=== PATIENT | female | born 1960 | race Caucasian/White ===

== ENCOUNTER → 2017-07-11 12:00 | Outpatient (CLI) | payer OTHER ==
[2012-05-20 13:36] VITALS: BMI 28.2
== END | disposition home or self-care (01) ==
LOC: D.MAMMO 08:00
DX: Z12.31 Encounter for screening mammogram for malignant neoplasm of breast (principal)

== ENCOUNTER → 2018-07-27 07:39 | Outpatient (CLI) | payer OTHER ==
[2012-05-20 13:36] VITALS: BMI 28.2
== END | disposition home or self-care (01) ==
LOC: D.MRI 07:39
DX: M25.572 Pain in left ankle and joints of left foot (principal)

== ENCOUNTER 2018-09-29 16:02 | Observation (INO) | payer OTHER ==
[~2018-09-29] VITALS: Ht 170.2 cm; Wt 86.4 kg
[2018-09-29] MEDS ORDERED: ZANTAC300 MG PO (16:14)
[2018-09-29] MEDS ORDERED: PROPAFENONE HC150 MG PO (16:14)
[2018-09-29] MEDS ORDERED: BAYER CHEWABLE81 MG PO (16:14)
[2018-09-29] MEDS ORDERED: ZIAC 5-6.25 MG1 TAB PO (16:14)
[2018-09-29 16:41] LABS: BASOPHILS 0.3 % (0-2); EOSINOPHILS 2.4 % (0-7); HEMATOCRIT 42.6 % (36.0-48.0); HEMOGLOBIN 14.6 g/dL (12-16); IMMATURE GRANULOCYTES 0.2 % (0-5); LYMPHOCYTES 50.3 % (15-50); MCH 31.7 pg (26.0-34.0); MCHC 34.3 g/dL (31.0-37.0); MCV 92.4 fL (80.0-100.0); MEAN PLATELET VOLUME 10.9 fL (7.4-10.4); MONOCYTES 8.6 % (2-11); NEUTROPHILS 38.2 % (40-80); PLATELET COUNT 238 10x3/uL (130-400); RBC 4.61 10x6/uL (4.00-5.40); WBC 5.9 10x3/uL (4.8-10.8)
[2018-09-29 16:55] LABS: APTT 25.4 SECONDS (22.8-39.4); INR 0.9 (0.85-1.17); PROTIME 11.7 SECONDS (11.6-15.0)
[2018-09-29 17:02] LABS: ALBUMIN 3.8 g/dL (3.4-5.0); ALKALINE PHOSPHATASE 86 U/L (46-116); ALT (SGPT) 37 U/L (10-68); BILIRUBIN - TOTAL 0.24 mg/dL (0.2-1.3); CALC OSMOLALITY 286 mosm/kg (275-300); CALCIUM 9.1 mg/dL (8.5-10.1); CARBON DIOXIDE 29.3 mmol/L (21.0-32.0); CHLORIDE - SERUM 104 mmol/L (98-107); CREATININE - SERUM 0.9 mg/dL (0.6-1.3); POTASSIUM - SERUM 3.7 mmol/L (3.5-5.1); PROTEIN - SERUM 7.5 g/dL (6.4-8.2); SODIUM 142 mmol/L (136-145); UREA NITROGEN 14 mg/dL (7-18); eGFR NON AFRICAN AMERICAN 68 mL/min (90-120)
[2018-09-29 17:04] LABS: GLUCOSE 144 mg/dL (74-106)
[2018-09-29 17:13] LABS: CKMB 0.3 U/L (0.0-3.6); CREATINE KINASE 72 UL (21-215); MAGNESIUM - SERUM 2.1 mg/dL (1.8-2.4); TROPONIN-I < 0.017 ng/mL (0.000-0.060)
--- NOTE | 2018-09-29 17:24 | NUR ---
NO RELIEF FROM NTG
[2018-09-29 17:31] LABS: CKMB 0.7 U/L (0.0-3.6); CREATINE KINASE 68 UL (21-215); TROPONIN-I < 0.017 ng/mL (0.000-0.060)
[2018-09-29 17:34] VITALS: BP 104/67
--- NOTE | 2018-09-29 21:06 | NUR ---
RECEIVED FROM ER @ 1593, AZAR-REBECCA-NICO, TELEMTRY IS ON, GAVE A SANDWICH AND DRINK, BED IS LOW, SRX2,CALL LIGHT IN REACH, WILL CONTINUE PLAN OF CARE
[2018-09-29 23:55] VITALS: BP 118/71
[2018-09-30 03:55] VITALS: BP 124/74
[2018-09-30 04:43] LABS: HEMATOCRIT 38.3 % (36.0-48.0); HEMOGLOBIN 12.9 g/dL (12-16); MCH 31.5 pg (26.0-34.0); MCHC 33.7 g/dL (31.0-37.0); MCV 93.4 fL (80.0-100.0); MEAN PLATELET VOLUME 11.4 fL (7.4-10.4); PLATELET COUNT 227 10x3/uL (130-400); RDW 13.1 % (11.5-14.5); WBC 6.4 10x3/uL (4.8-10.8)
--- NOTE | 2018-09-30 04:43 | NUR ---
ASSESSMENT PER MANAGER TALENT MANAGEMENT REVIEWED AND THIS RN IN AGREEMENT. MONITOR AND CPOC.
--- NOTE | 2018-09-30 04:45 | NUR ---
ADMISSION ASSESSMENT COMPLETED. PT RESTING IN BED WITH NO DISTRESS. PLAN OF CARE INITIATED.
[2018-09-30 05:11] LABS: ALBUMIN 3.1 g/dL (3.4-5.0); ALKALINE PHOSPHATASE 66 U/L (46-116); ALT (SGPT) 34 U/L (10-68); BILIRUBIN - TOTAL 0.57 mg/dL (0.2-1.3); CALCIUM 8.4 mg/dL (8.5-10.1); CARBON DIOXIDE 28.8 mmol/L (21.0-32.0); CHLORIDE - SERUM 105 mmol/L (98-107); CKMB 0.2 U/L (0.0-3.6); CREATINE KINASE 107 UL (21-215); CREATININE - SERUM 0.7 mg/dL (0.6-1.3); PROTEIN - SERUM 6.1 g/dL (6.4-8.2); SODIUM 143 mmol/L (136-145); TROPONIN-I < 0.017 ng/mL (0.000-0.060); UREA NITROGEN 14 mg/dL (7-18); eGFR NON AFRICAN AMERICAN > 90 mL/min (90-120)
[2018-09-30 05:24] LABS: CALC OSMOLALITY 285 mosm/kg (275-300); GLUCOSE 92 mg/dL (74-106); POTASSIUM - SERUM 5.1 mmol/L (3.5-5.1)
[2018-09-30 05:37] LABS: EOSINOPHILS 3 % (0-7); LYMPHOCYTES 64 % (15-50); MONOCYTES 11 % (2-11); NEUTROPHILS 22 % (40-80)
[2018-09-30 05:38] LABS: PLATELET ESTIMATE NORMAL
[2018-09-30 06:36] VITALS: BP 124/74; Ht 170.2 cm; Wt 86.4 kg
--- NOTE | 2018-09-30 07:10 | NUR ---
RECEIVED BEDSIDE SHIFT REPORT. ASSUMED CARE OF PATIENT. PATIENT WITH EYES CLOSED, EASILY AROUSED. DENIES NEEDS AT THIS TIME. EXPLAINED NPO STATUS TO PATIENT. PATIENT VERBALIZED HER UNDERSTANDING. DENIES NEEDS AT THIS TIME. NO DISTRESS.
--- NOTE | 2018-09-30 07:40 | NUR ---
PATIENT ALERT/ORIENTED, UP AD AURELIO.
[2018-09-30 08:50] VITALS: BP 123/78
[2018-09-30] MEDS ORDERED: ZIAC 5-6.25 MG1 TAB PO (09:42)
--- NOTE | 2018-09-30 10:04 | NUR ---
20 GAUGE IV REMOVED FROM LEFT AC PATIENT IS BEING DISCHARGED TO HOME. CATHETER TIP INTACT. NO BLEEDING FROM SITE. PATIENT REFUSED BANDAID DUE TO SENSITIVE SKIN. TOLERATED IV REMOVAL WELL.
--- NOTE | 2018-09-30 10:36 | NUR ---
1028 PATIENT LEFT UNIT VIA WHEELCHAIR WITH ALL PERSONAL BELONGINGS. PATIENT DISCHARGED TO HOME VIA PRIVATE CAR. PATIENT IN NO DISTRESS UPON LEAVING UNIT THIS AM.
--- NOTE | 2018-10-02 11:18 | DS ---
PATIENT:KANCHAN BENSON :60 MEDICAL RECORD: [id number] DISCHARGE SUMMARY ADMISSION DATE: 09/29/18 DISCHARGE DATE: 09/30/18 DATE OF SERVICE: 09/30/2018. DISCHARGE DIAGNOSES: 1. Dysrhythmia - premature ventricular contractions. 2. Chest pain. 3. Paroxysmal atrial fibrillation. 4. Hypertension. HISTORY OF PRESENT ILLNESS: Ms. Benson presents with episodes of chest pain in conjunction with PVCs. Elsewise, she does not have chest pain. She has a history of atrial fibrillation for which she is on propafenone, history of hypertension for which she is on bisoprolol. The bisoprolol was doubled, PVCs were abolished. She was discharged home with the addition of the bisoprolol b.i.d. to her medical regimen, continue the propafenone. Follow up with Dr. Murrell as previously scheduled. TRANSINT:[id number] Voice Confirmation ID: [id number] DOCUMENT ID: [id number] AKSHAT CRAWFORD MD at 1118 CC: [id number] DICTATION DATE: 09/30/18 1142 PROCESS CONSULTANT: 10/01/18 0043 DIS IN 09/30/18 [facility] [address] [place] [address]
--- NOTE | 2018-10-03 08:24 | MORECARE ---
CASE MANAGEMENT DISCHARGE SUMMARY PATIENT: KANCHAN MENJIVAR UNIT: [id number] ADM DATE: 09/29/18 AGE: 58 : 60 SEX: F ROOM/BED: D.[facility] AUTHOR: ABRAM KRUGER PHYSICIAN: REFERRING PHYSICIAN: AKSHAT CRAWFORD MD DATE OF SERVICE: 10/03/18 Discharge Plan Patient Name: KANCHAN MENJIVAR Facility: [facility]:[place] : 1960 Planned Disposition: Home Anticipated Discharge Date: 09/30/18 Discharge Date: 09/30/2018 Expected LOS: 1 Initial Reviewer: [email or web address] Initial Review Date: 10/03/2018 Generated: 10/03/18 9:24 am Patient Name: KANCHAN MENJIVAR Page [phone] at 0824 All edits/amendments must be made on the electronic document DICTATION DATE: 10/03/18822 ALTERNATIVE FINANCING SPECIALIST: AIYANA 10/03/18822 RPT#: [id number] DC DATE:09/30/18 STATUS: DIS IN [facility] [address] [place] [address] END OF REPORT
== END 2018-09-30 10:28 | disposition home or self-care (01) ==
LOC: D.OPS 16:02 → D.ER 16:02 → D.M2 17:04 → OBSVTIME 17:04 → D.M2 17:04 → D.ER 18:52 → EDSTATUS 20:33 → D.OPS 20:35 → D.M2 09-30 10:28
PROVIDERS: Family Medicine; ADMIT Internal Medicine Interventional Cardiology
DX: I48.0 Paroxysmal atrial fibrillation (principal); I49.3 Ventricular premature depolarization; I10 Essential (primary) hypertension

== ENCOUNTER → 2018-10-10 09:49 | Outpatient (CLI) | payer OTHER ==
[2018-09-30 06:36] VITALS: BMI 29.8
[~2018-10-10 09:49] MED LIST: BAYER CHEWABLE81 MG PO; PROPAFENONE HC150 MG PO; ZANTAC300 MG PO; ZIAC 5-6.25 MG1 TAB PO
== END | disposition home or self-care (01) ==
LOC: D.HCCARDIO 09:30
PROVIDERS: ATTEND Nurse Practitioner
DX: I10 Essential (primary) hypertension (principal)

== ENCOUNTER → 2019-05-13 08:00 | Outpatient (CLI) | payer OTHER ==
[2018-09-30 06:36] VITALS: BMI 29.8
== END | disposition home or self-care (01) ==
LOC: D.MAMMO 08:00
PROVIDERS: ATTEND Family Medicine
DX: Z12.31 Encounter for screening mammogram for malignant neoplasm of breast (principal)

== ENCOUNTER 2019-08-24 04:57 | Inpatient (IN) | payer OTHER ==
[~2019-08-24] VITALS: Ht 170.2 cm; Wt 86.2 kg
--- NOTE | ~2019-08-24 | EC ---
PATIENT:KANCHAN MENJIVAR DATE OF SERVICE: 08/27/19 SEX: F MEDICAL RECORD: [id number] DATE OF : 60 LOCATION:D.M3 D.121 AGE OF PATIENT: 59 ADMISSION DATE: 08/27/19 REFERRING PHYSICIAN: INTERPRETING PHYSICIAN: AKSHAT GUEVARA MD ECHOCARDIOGRAM REPORT ECHO CHARGES 4 ECHO COMPLETE Date: 08/27/19 CLINICAL DIAGNOSIS: PULMONARY EMBOLI HX OF AFIB ECHOCARDIOGRAPHIC MEASUREMENTS (adult normal given) AC root (d.<3.7cm) 2.5 cm LV Septum d (<1.2 cm> 1.4 cm Valve Excursion 1.3 cm LV Septum (systole) 2.0 cm Left Atria (s.<4.0cm> 4.5 cm LVPW d(<1.2cm) 1.7 cm RV (d.<2.3cm) 3.1 cm LVPW (sytole) 1.9 cm LV diastole(<5.6CM) 4.7 cm MV E-F(>70mm/sec) cm LV systole 2.6 cm LVOT Diameter 1.8 cm MV exc.(>10mm) 1.7 cm Est.ejection fraction (50-75%) % DOPPLER: LVIT cm/sec A 62.0 cm/sec E 122.0 cm/sec LA cm/sec RVSP 35 mmHg LVOT 106 cm/sec AOP1/2T m/s Asc. Ao 108 cm/sec RVOT 89 cm/sec RA cm/sec PA 92 cm/sec AV Gradient Peak 4.64 mmHg AV Mean 2.37 mmHg AV Area 2.8 cm MV Gradient Peak 10.77mmHg MV Mean 2.60 mmHg MV Area cm COMMENTS: Legal Services Professional: 2 ISAAC STEEN Irrigation Service Technician: 1 Dr. Guevara TAPE# PACS Pericardial Effusion N DATE OF SERVICE: PROCEDURE: Echocardiogram. FINDINGS: 1. Left ventricular chamber size is within normal limits. Left ventricular systolic function is normal. Overall ejection fraction estimated at 60% to 65%. 2. Left atrium is enlarged at 4.5 cm. Right atrium and right ventricular chamber sizes are within normal limits. 3. Valvular structures have normal structure and motion. ECHOCARDIOGRAM REPORT [id number] KANCHAN MENJIVAR 4. Doppler interrogation reveals moderate mitral regurgitation, mild tricuspid regurgitation, no other valvular insufficiency or stenosis. Pulmonary systolic pressure estimated at 35 mmHg. 5. No evidence of pericardial effusion or left ventricular thrombus. 6. No cardiac source of neurologic emboli. TRANSINT:[id number] Voice Confirmation ID: [id number] DOCUMENT ID: [id number] AKSHAT GUEVARA MD CC: [id number] DICTATION DATE: 08/27/19 1155 PARISH WORKER: 08/27/19 1418 ADM IN [place] [address] [place] [address]
--- NOTE | 2019-08-24 05:58 | NUR ---
PT IN WITH C/O RIGHT FLANK PAIN THAT STARTED YESTERDAY, SUBSIDED AND STARTED BACK THIS MORNING, WOKE PATIENT FROM A SOUND SLEEP. DENIES N/V, SPOUSE AT BEDSIDE.
--- NOTE | 2019-08-24 06:26 | NUR ---
TO CT VIA W/C PER TECH, PATIENT IS FEELING BETTER
[2019-08-24 06:27] VITALS: BP 134/78
[2019-08-24 06:52] LABS: BASOPHILS 0.3 % (0-2); EOSINOPHILS 1.9 % (0-7); HEMATOCRIT 41.1 % (36.0-48.0); HEMOGLOBIN 13.8 g/dL (12-16); IMMATURE GRANULOCYTES 0.2 % (0-5); LYMPHOCYTES 26.4 % (15-50); MCHC 33.6 g/dL (31.0-37.0); MCV 92.4 fL (80.0-100.0); MEAN PLATELET VOLUME 11.7 fL (7.4-10.4); MONOCYTES 9.5 % (2-11); NEUTROPHILS 61.7 % (40-80); PLATELET COUNT 245 10x3/uL (130-400); RBC 4.45 10x6/uL (4.00-5.40); RDW 12.6 % (11.5-14.5); WBC 10.7 10x3/uL (4.8-10.8)
[2019-08-24 06:59] LABS: ANION GAP 14.7 mmol/L (8-16); CALCIUM 8.5 mg/dL (8.5-10.1); CREATININE - SERUM 0.9 mg/dL (0.6-1.3); POTASSIUM - SERUM 3.7 mmol/L (3.5-5.1)
[2019-08-24 07:04] LABS: ALBUMIN 3.6 g/dL (3.4-5.0); BILIRUBIN - TOTAL 0.73 mg/dL (0.2-1.3); MAGNESIUM - SERUM 2.1 mg/dL (1.8-2.4); PROTEIN - SERUM 7.5 g/dL (6.4-8.2)
[2019-08-24 08:19] LABS: APPEARANCE CLEAR (CLEAR); BILIRUBIN NEGATIVE (NEGATIVE); COLOR YELLOW (YELLOW); GLUCOSE NEGATIVE (NEGATIVE); KETONE NEGATIVE (NEGATIVE); NITRITE NEGATIVE (NEGATIVE); PROTEIN TRACE mg/dL (NEGATIVE); SPECIFIC GRAVITY 1.015 (1.005-1.020); UROBILINOGEN NORMAL (NORMAL)
[2019-08-24 08:20] LABS: BACTERIA FEW /hpf (NEGATIVE); EPITHELIAL CELLS 0-5 /hpf (0-5); MUCUS <1+ /lpf (NONE SEEN); RED CELLS - URINE 0-5 /hpf (0-5); WHITE CELLS - URINE 0-5 /hpf (NEGATIVE)
--- NOTE | 2019-08-24 08:30 | NUR ---
REC'D PT SITTING IN BED RESP EVEN AND UNLABORED LUNG SOUNDS CLEAR PT DENIES PAIN AT THIS TIME. IV TO RIGHT HAND PATENT AND INTACT AT THIS TIME. SRX2 BED AT LOWEST SETTING WITH BRAKES APPLIED. CALL LIGHT WITHIN REACH WILL CONTINUE TO MONITOR.
[2019-08-24 08:42] VITALS: BP 118/68
--- NOTE | 2019-08-24 08:43 | NUR ---
NS @ 75ML/HR CONTINUED ON TRANSPORT TO FLOOR
[2019-08-24 10:56] VITALS: BP 123/70; BMI 29.8
[2019-08-24] MEDS ORDERED: OMEPRAZOLE20 M1 PO (10:56)
[2019-08-24 13:43] VITALS: BP 119/72
[2019-08-24 16:00] VITALS: BP 115/68
--- NOTE | 2019-08-24 19:30 | NUR ---
PT SITTING UP IN BED IN TRIPOD POSITION LEANING OVER BEDSIDE TABLE WITH PILLOW PRESSED TO CHEST. UNABLE TO GET COMFORTABLE. DAY NURSE RECIEVED ORDERS FOR MORPHINE 2MG Q4P AND GAVE ORDERED 1849. HAD GIVEN NORCO 5 AT 1820. PT STATED NORCO GAVE HER NO RELIEF. FAMILY UPSET THAT PT IS IN SO MUCH PAIN. PT BREATHING SHALLOW STATING IT HURTS TO TAKE BREATHS. STATES MORPHINE HAS EASED PAIN SLIGHTLY AND FAMILY STATES SHE IS A LITTLE MORE RELAXED. ENCOURAGED TO GIVE MORPHINE MORE TIME. VERBALIZED UNDERSTANDING. PT AND FAMILY DENY OTHER NEEDS AT THIS TIME. WILL CTM
[2019-08-24 19:39] VITALS: BP 137/80
--- NOTE | 2019-08-24 20:50 | NUR ---
PT STILL LEANING ON BEDSIDE TABLE BUT MORE RELAXED. RESTING ON TABLE WITH EYES CLOSED. GAVE ORDERED MED AND ULTRAM FOR PAIN. PT WORRIED PAIN WILL COME BACK BAS IT WAS. STATES IT IS ABOUT A 6/10 AT THIS TIME. PT REQUESTED AND GIVEN ICE. DENIES OTHER NEEDS. WILL CTM
--- NOTE | 2019-08-24 22:00 | NUR ---
PT RESTLESS, UNABLE TO GET COMFORTABLE. STATES PAIN 10/10 AND FEELS LIKE SHE CANNOT BREATHE D/T PAIN WHEN TAKING BREATHS. STANDING UP LEANING OVER BEDSIDE TABLE, STATES IF SHE SITS OR LAYS DOWN SHE CANNOT BREATH. PT IS HOLDING HER BREATH AT TIMES. PULSE OX 87-88%. PLACED PT ON 2L/NC TO GET PT ABOCE 92%. CALLED AND SPOKE WITH DR YORK. ORDERS RECIEVED TO CHANGE MORPHINE TO 4MG AND GIVE WITH TORADOL 60MG Q6PRN. GAVE MORPHINE ORDERED. PT SLOWLY BEGAN TO RELAX AND WAS ABLE TO SIT BACK IN THE BED. WHILE WAITING ON HELPER MARBLE FINISHER TO PULL TORADOL, PT HAD LAID IN BED AND FELL ASLEEP. VERY RELAXED, O2 95%. WILL HOLD TORADOL AT THIS TIME. WILL CTM
[2019-08-25 00:10] VITALS: BP 112/68
--- NOTE | 2019-08-25 01:00 | NUR ---
PT WOKE UP AND STATES SHE IS BEGINNING TO HURT AGAIN. REQUESTED NORCO UNTIL SHE COULD HAVE MORPHINE. GAVE PT NORCO AND TORADOL AT THIS TIME. WITHIN 30MIN PT WAS SLEEPING QUIETLY. WILL CTM
[2019-08-25 04:23] VITALS: BP 99/59
--- NOTE | 2019-08-25 04:30 | NUR ---
PT STATES PAIN 5/10, REQUESTED AND GIVEN MORPHINE. DENIES OTHER NEEDS. WILL CTM
[2019-08-25 07:04] LABS: ANION GAP 9.9 mmol/L (8-16); CALCIUM 8.1 mg/dL (8.5-10.1); CARBON DIOXIDE 28.8 mmol/L (21.0-32.0); CREATININE - SERUM 0.9 mg/dL (0.6-1.3); POTASSIUM - SERUM 3.7 mmol/L (3.5-5.1)
[2019-08-25 07:22] LABS: BASOPHILS 0.2 % (0-2); EOSINOPHILS 1.1 % (0-7); HEMOGLOBIN 11.5 g/dL (12-16); IMMATURE GRANULOCYTES 0.2 % (0-5); LYMPHOCYTES 31.8 % (15-50); MCH 30.6 pg (26.0-34.0); MCHC 32.9 g/dL (31.0-37.0); MCV 93.1 fL (80.0-100.0); MONOCYTES 9.6 % (2-11); NEUTROPHILS 57.1 % (40-80); PLATELET COUNT 225 10x3/uL (130-400); RBC 3.76 10x6/uL (4.00-5.40); RDW 12.6 % (11.5-14.5)
[2019-08-25 07:44] VITALS: BP 105/45
[2019-08-25 11:22] VITALS: BP 105/62
[2019-08-25 19:51] VITALS: BP 126/72
--- NOTE | 2019-08-25 20:00 | NUR ---
A/O WITH SIGNS OF DISTRESS. CLEAN DRESSING TO THE LT CHEST PORT. C/O OF 5/10 PAIN. PRN PAIN MEDS AND ANITMEDIC GIVEN. ASSISTED TO BATHROOM AND BACK INTO BED. DENIES NO OTHER NEEDS AT THIS TIME. CONTINUE PLAN OF CARE.
--- NOTE | 2019-08-25 21:50 | NUR ---
A/O WITH NO SIGNS OF DISTRESS. IV TO THE RT AC WITH NO REDNESS OR SWELLING. NC @2L. C/O OF 6/10 PAIN IN CHEST. PRN PAIN MEDS GIVEN. DENIES NO OTHER NEEDS AT THIS TIME. CONTINUE PLAN OF CARE.
[2019-08-26 00:33] VITALS: BP 116/68
[2019-08-26 05:01] VITALS: BP 117/54
[2019-08-26 06:02] LABS: BASOPHILS 0 % (0-2); EOSINOPHILS 0 % (0-7); HEMOGLOBIN 12.2 g/dL (12-16); IMMATURE GRANULOCYTES 0.2 % (0-5); LYMPHOCYTES 8.6 % (15-50); MCH 30.7 pg (26.0-34.0); MEAN PLATELET VOLUME 11.4 fL (7.4-10.4); MONOCYTES 1.3 % (2-11); NEUTROPHILS 89.9 % (40-80); PLATELET COUNT 258 10x3/uL (130-400); RBC 3.98 10x6/uL (4.00-5.40); RDW 12.5 % (11.5-14.5); WBC 11.2 10x3/uL (4.8-10.8)
[2019-08-26 06:15] LABS: CALC OSMOLALITY 282 mosm/kg (275-300); CALCIUM 8.2 mg/dL (8.5-10.1); CARBON DIOXIDE 28.1 mmol/L (21.0-32.0); CHLORIDE - SERUM 105 mmol/L (98-107); CREATININE - SERUM 0.7 mg/dL (0.6-1.3); GLUCOSE 144 mg/dL (74-106); POTASSIUM - SERUM 3.7 mmol/L (3.5-5.1); SODIUM 141 mmol/L (136-145); UREA NITROGEN 9 mg/dL (7-18); eGFR NON AFRICAN AMERICAN > 90 mL/min (90-120)
--- NOTE | 2019-08-26 07:35 | NUR ---
AWAKE AND ALERT. ORIENTED X3. REQUESTED AND GIVEN 650 MG TYLENOL PO FOR C/O DAVE. WILL MONITOR. LUNGS ARE DIMINISHED THROUGHOUT BUT MORE SO ON RIGHT SIDE. SKIN IS INTACT WITHOUT REDNESS. IV TO RIGHT AC IS PATENT WITHOUT REDNESS AT INSERTION SITE. DENIES NEEDS. AT BEDSIDE.
[2019-08-26 07:43] VITALS: BP 117/62
--- NOTE | 2019-08-26 10:09 | NUR ---
REPORTS HEADACHE IMPROVED WITH TYLENOL. DISCUSSED USE OF PERCOCET FOR PAIN MANAGEMENT. WILL MONITOR.
--- NOTE | 2019-08-26 10:22 | NUR ---
C/O SOME NAUSEA AT THIS TIME. GIVEN 4MG ZOFRAN SLOW IVP FOR SAME. WILL MONITOR.
[2019-08-26 12:26] VITALS: BP 127/70
--- NOTE | 2019-08-26 13:29 | NUR ---
REQUESTED AND GIVEN 2 PERCOCET PO FOR C/O HEADACHE LEVEL 5. WILL MONITOR.
--- NOTE | 2019-08-26 17:12 | MORECARE ---
CASE MANAGEMENT DISCHARGE SUMMARY PATIENT: KANCHAN MENJIVAR UNIT: [id number] ADM DATE: 08/24/19 AGE: 59 : 60 SEX: F ROOM/BED: D.1210 AUTHOR: SASKIA,DOC PHYSICIAN: REFERRING PHYSICIAN: LINDSAY YORK MD DATE OF SERVICE: 08/26/19 Discharge Plan Patient Name: KANCHAN MENJIVAR Facility: [facility]:[place] : 1960 Planned Disposition: Anticipated Discharge Date: Discharge Date: Expected LOS: Initial Reviewer: [email or web address] Initial Review Date: 08/24/2019 Generated: 08/26/19 6:12 pm Comments DCP- Discharge Planning Updated by [email or web address]: Nga Stroud on 08/26/19 4:[address] Patient Name: KANCHAN MENJIVAR Admission Status: ER Accout number: [id number] Admission Date: 08-24-2019 : 1960 Admission Diagnosis: Attending: LINDSAY YORK Current LOS: 2 Anticipated DC Date: Planned Disposition: Primary Insurance: [employer] PPO Discharge Planning Comments: CM met with patient to complete initial dc planning assessment. CM educated patient on the CM role and verbal consent given by patient to complete assessment. Patient lives at home with her where she is independent with her care. At discharge patient plans to return home and feels this is a safe discharge. CM discussed availability of home health, rehab services, and medical equipment. Her will drive her home upon discharge. Patient denied known discharge needs at this time. CM will continue to follow and will assist as needed with dc plans/needs. L Tacker: Nga Stroud DCPIA - Discharge Planning Initial Assessment Updated by [email or web address]: Nga Stroud on 08/26/19 5:05 pm * Is the patient Alert and Oriented? Yes * How many steps to enter\exit or inside your home? * PCP CHELA * Pharmacy [facility] [employer] MAIL ORDER * Preadmission Environment Home with Family * ADLs Independent * Equipment None * List name and contact numbers for known caregivers / representatives who currently or will assist patient after discharge: EDDIE MENJIVAR - SPOUSE - [phone] * Verbal permission to speak to the caregivers and representatives has been obtained from the patient. Yes * Community resources currently utilized None * Additional services required to return to the preadmission environment? No * Can the patient safely return to the preadmission environment? Yes * Has this patient been hospitalized within the prior 30 days at any hospital? No External Providers External Provider: OTHER-OTHER Next Contact Date: Service Request Date: Service Type: Resolution: Reviewer: Comments: Patient Name: KANCHAN MENJIVAR Page [phone] at 1712 All edits/amendments must be made on the electronic document DICTATION DATE: 08/26/191711 SERVICE OFFICER: AIYANA 08/26/191711 RPT#: [id number] DC DATE: STATUS: ADM IN [facility] [address] [place] [address] END OF REPORT
[2019-08-26 17:28] VITALS: BP 114/63
--- NOTE | 2019-08-26 19:16 | NUR ---
ATE ABOUT HALF OF SUPPER. AMBULATED IN HALLWAY WITH . NO CHANGES NOTED. DENIES NEEDS.
--- NOTE | 2019-08-26 19:19 | NUR ---
PATIENT RESTING IN BED WITH GUEST AT BEDSIDE AND DENIES NEEDS AT THIS TIME. NO S/S OF DISTRESS NOTED. BED IN LOWEST POSITION AND CALL LIGHT WITHIN REACH. ENCOURAGED THE PATIENT TO CALL IF SHE HAS NEEDS. WILL CONTINUE TO MONITOR.
[2019-08-26 19:55] VITALS: BP 114/61
[2019-08-27 00:19] VITALS: BP 113/58
--- NOTE | 2019-08-27 03:32 | NUR ---
PAGED DR. CUMMINGS, CLINIC PHYSICIAN FOR DR. OYRK, IN REGARDS TO PATIENT C/O INCREASING TIGHTNESS IN HER CHEST
[2019-08-27 04:22] VITALS: BP 132/73
[2019-08-27 04:50] LABS: CKMB 2.7 U/L (0.0-3.6); CREATINE KINASE 162 UL (21-215); TROPONIN-I < 0.017 ng/mL (0.000-0.060)
--- NOTE | 2019-08-27 08:04 | NUR ---
AWAKE AND ALERT. ORIENTED X3. NO C/O AT THIS TIME. LUNGS ARE CLEAR BUT DIMINISHED ON RIGHT SIDE IN PARTICULAR. NO COUGH NOTED. SKIN IS INTACT WITHOUT REDNESS. IV TO RIGHT AC IS PATENT WITHOUT REDNESS AT INSERTION SITE. DENIES NEEDS.
[2019-08-27 08:06] VITALS: BP 113/62
--- NOTE | 2019-08-27 10:00 | NUR ---
UP TO SHOWER WITH SET UP ASSISTANCE. DENIES NEEDS.
[2019-08-27 10:09] LABS: CREATINE KINASE 187 UL (21-215); TROPONIN-I < 0.017 ng/mL (0.000-0.060)
[2019-08-27 12:12] VITALS: BP 153/76
--- NOTE | 2019-08-27 15:00 | NUR ---
STILL C/O SOME NAUSEA. AMBULATED IN HALLWAY WITH MOM OVER 500 FEET. DENIES NEEDS.
[2019-08-27 16:15] LABS: CKMB 2.9 U/L (0.0-3.6); CREATINE KINASE 174 UL (21-215); TROPONIN-I < 0.017 ng/mL (0.000-0.060)
--- NOTE | 2019-08-27 16:16 | NUR ---
DR. LY HERE. NEW ORDERS RECEIVED.
[2019-08-27 17:34] VITALS: BP 124/65
--- NOTE | 2019-08-27 18:40 | NUR ---
RESTING QUIETLY IN BED. ATE ABOUT 25% OF SUPPER. NO C/O NAUSEA AT THIS TIME. DENIES NEEDS.
--- NOTE | 2019-08-27 19:30 | NUR ---
PT ALERT AND ORIENTED X3. NO COMPLAINTS. IV TO RIGHT AC INFUSING WITH NO REDNESS OR SWELLING AT INSERTION SITE. LUNGS CLEAR BUT DIMINISHED ON RIGHT SIDE. DENIES HAVING ANY PAIN OR NEEDS AT THIS TIME. BED IN LOWEST POSITION. SIDE RAILS UP. CALL LIGHT IN REACH. WILL CONTINUE TO MONITOR.
[2019-08-27 20:59] VITALS: BP 136/63
[2019-08-28 00:58] VITALS: BP 124/64
--- NOTE | 2019-08-28 04:00 | NUR ---
PATIENT RESTING IN BED WITH EYES CLOSED. NO SIGNS OF DISTRESS. BED IN LOWEST POSITION. SIDE RAILS UP. CALL LIGHT IN REACH. WILL CONTINUE TO MONITOR.
[2019-08-28 06:29] VITALS: BP 120/60
--- NOTE | 2019-08-28 07:10 | NUR ---
REPORT RECIVED FROM GREENHOUSE FLORIST AND PATIENT CARE ASSUMED. PATIENT LAYING IN BED BACK AWAKE, ALERT AND ORIENTED X 4. PATIENT IS STABLE AND VSS. PATIENT DENIES ANY NEEDS OR PAIN. WILL CONTINUE WITH PLAN OF CARE. SR UP X 2 BED IN LOW POSITION AND CALL LIGHT IN REACH.
[2019-08-28 07:16] VITALS: BP 158/77
[2019-08-28 11:04] VITALS: BP 144/55
[2019-08-28 15:08] VITALS: Ht 170.2 cm; Wt 86.2 kg
[2019-08-28 15:25] VITALS: BP 164/66
--- NOTE | 2019-08-28 17:10 | NUR ---
PT UP TO CHAIR, EATING DINNER. DENIES ANY NEEDS AT THIS TIME. CALL LIGHT IN REACH, NAD NOTED, WILL CONTINUE TO MONITOR.
--- NOTE | 2019-08-28 19:29 | NUR ---
EVENING ROUNDS COMPLETED. VSS, AAOX4, PT APPEARS LETHARGIC. STATES SHE HAS A LITTLE PRESSURE ON HER CHEST, BUT SHE WILL LET ME KNOW IF IT GETS WORSE. PT DENIES ANY FURTHER NEEDS AT THIS TIME WILL CPOC. CL WITHIN REACH.
[2019-08-28 20:30] VITALS: BP 171/74
[2019-08-29 00:30] VITALS: BP 165/72
[2019-08-29 04:30] VITALS: BP 196/82
--- NOTE | 2019-08-29 07:32 | NUR ---
REPORT RECEIVED. WILL CONTINUE WITH POC. PT CURRENTLY LYING ON RIGHT SIDE. CALL LIGHT W/I REACH. PT IS AAO AND UP AD AURELIO. RR EVEN AND UNLABORED ON 2L 02. R.AC PIV IS SALINE LOCKED. NO S/S OF DISTRESS NOTED. PT DENIES ANY NEEDS AT THIS TIME. WILL CTM.
[2019-08-29] MEDS ORDERED: XARELTO15 MG PO (07:35)
[2019-08-29] MEDS ORDERED: MUCINEX DM ER1 EAC1 PO (07:36)
[2019-08-29] MEDS ORDERED: PERCOCET 10-321 EAC1 PO (07:36)
[2019-08-29] MEDS ORDERED: TESSALON PERLE100 MG PO (07:36)
[2019-08-29] MEDS ORDERED: PEPCID PO (07:37)
[2019-08-29] MEDS ORDERED: LEVAQUIN750 MG PO (07:38)
[2019-08-29] MEDS ORDERED: MEDROL DOSE PACK4 MG PO (07:38)
[2019-08-29] MEDS ORDERED: CATAPRES0.1 MG PO (07:39)
[2019-08-29] MEDS ORDERED: XARELTO20 MG PO (07:41)
[2019-08-29 07:46] VITALS: BP 168/69
--- NOTE | 2019-08-29 08:25 | MORECARE ---
CASE MANAGEMENT DISCHARGE SUMMARY PATIENT: KANCHAN MENJIVAR UNIT: [id number] ADM DATE: 08/27/19 AGE: 59 : 60 SEX: F ROOM/BED: D.8330 AUTHOR: SASKIA,DOC PHYSICIAN: REFERRING PHYSICIAN: LINDSAY YORK MD DATE OF SERVICE: 08/29/19 Discharge Plan Patient Name: KANCHAN MENJIVAR Facility: [facility]:[place] : 1960 Planned Disposition: Home Anticipated Discharge Date: 08/29/19 Discharge Date: Expected LOS: 2 Initial Reviewer: [email or web address] Initial Review Date: 08/24/2019 Generated: 08/29/19 9:25 am DCP- Discharge Planning Updated by [email or web address]: Nga Stroud on 08/26/19 4:[address] Patient Name: KANCHAN MENJIVAR Admission Status: ER Accout number: [id number] Admission Date: 08-24-2019 : 1960 Admission Diagnosis: Attending: LINDSAY YORK Current LOS: 2 Anticipated DC Date: Planned Disposition: Primary Insurance: [employer]IG[employer] PPO Discharge Planning Comments: CM met with patient to complete initial dc planning assessment. CM educated patient on the CM role and verbal consent given by patient to complete assessment. Patient lives at home with her where she is independent with her care. At discharge patient plans to return home and feels this is a safe discharge. CM discussed availability of home health, rehab services, and medical equipment. Her will drive her home upon discharge. Patient denied known discharge needs at this time. CM will continue to follow and will assist as needed with dc plans/needs. Hedge Fund Principal: Nga Stroud DCPIA - Discharge Planning Initial Assessment Updated by [email or web address]: Nga Stroud on 08/26/19 5:05 pm * Is the patient Alert and Oriented? Yes * How many steps to enter\exit or inside your home? * PCP CHELA * Pharm[facility] [facility] * Preadmission Environment Home with Family * ADLs Independent * Equipment None * List name and contact numbers for known caregivers / representatives who currently or will assist patient after discharge: EDDIE MENJIVAR - spouse - [phone] * Verbal permission to speak to the caregivers and representatives has been obtained from the patient. Yes * Community resources currently utilized None * Additional services required to return to the preadmission environment? No * Can the patient safely return to the preadmission environment? Yes * Has this patient been hospitalized within the prior 30 days at any hospital? No Last DP export: 08/26/19 4:12 p Patient Name: KANCHAN MENJIVAR Page [phone] at 0825 All edits/amendments must be made on the electronic document DICTATION DATE: 08/29/19824 PROGRAM MANAGEMENT INTERN: AIYANA 08/29/19824 RPT#: [id number] DC DATE: STATUS: ADM IN [facility] [address] [place] [address] END OF REPORT
--- NOTE | 2019-08-29 08:40 | NUR ---
WRITTEN SCRIPT FOR PERCOCET 10/325 MG #56 WITH NO REFILLS TO PATIENT. COPY TO CHART.
--- NOTE | 2019-08-29 10:00 | NUR ---
PT DISCHARGED HOME VIA WHEELCHAIR WITH FAMILY. PIV REMOVED WITH CATHETER TIP FULLY INTACT. PT SIGNED PROPER DISCHARGE INSTRUCTIONS AND REMOVED ALL VALUABLES FROM THE ROOM. SCRIPT GIVEN.
[2019-08-29 11:10] LABS: HAPTOGLOBIN 306 mg/dL (33-346)
[2019-08-29 15:10] LABS: ACLA - IGG AB <9 GPL U/mL (0-14); ACLA - IGM AB <9 MPL U/mL (0-12)
[2019-08-30 03:07] LABS: PROTEIN S - FREE 131 % (57-157); PROTEIN S - FUNCTIONAL 136 % (63-140); PROTEIN S - TOTAL 96 % (60-150)
[2019-08-30 04:07] LABS: PROTEIN S - FREE 128 % (57-157); PROTEIN S - TOTAL 96 % (60-150)
[2019-08-30 06:09] LABS: LUPUS - INTERPRETATION Comment: (()); LUPUS - THROMBIN TIME 16.2 sec (0.0-23.0)
== END 2019-08-29 10:01 | disposition home or self-care (01) | DRG 175 ==
LOC: D.ER 04:57 → D.M3 08:19 → OBSVTIME 08:40 → D.M3 08-27 11:18 → D.M2 08-28 16:08
PROVIDERS: Emergency Medicine; Family Medicine; Internal Medicine Pulmonary Disease; ADMIT Family Medicine; ATTEND Family Medicine
DX: I26.99 Other pulmonary embolism without acute cor pulmonale (principal); J18.9 Pneumonia, unspecified organism; J98.11 Atelectasis; I10 Essential (primary) hypertension; I48.91 Unspecified atrial fibrillation; D64.9 Anemia, unspecified; I08.1 Rheumatic disorders of both mitral and tricuspid valves; J40 Bronchitis, not specified as acute or chronic; R00.1 Bradycardia, unspecified

== ENCOUNTER 2019-08-30 23:15 | Observation (INO) | payer OTHER ==
[~2019-08-30] VITALS: Ht 170.2 cm; Wt 85.2 kg
[~2019-08-30 23:15] MED LIST changes: +CATAPRES0.1 MG PO; +LEVAQUIN750 MG PO; +MEDROL DOSE PACK4 MG PO; +MUCINEX DM ER1 EAC1 PO; +OMEPRAZOLE20 M1 PO; +PEPCID PO; +PERCOCET 10-321 EAC1 PO; +TESSALON PERLE100 MG PO; +XARELTO15 MG PO; +XARELTO20 MG PO
--- NOTE | 2019-08-30 23:54 | NUR ---
CARDIZEM DRIP INFUSING PER ORDER, PATIENT STATES SHE FEELS A LITTLE BETTER, SPOUSE AT BEDSIDE.
[2019-08-31 00:10] LABS: BASOPHILS 0.2 % (0-2); EOSINOPHILS 0.4 % (0-7); HEMATOCRIT 46.4 % (36.0-48.0); HEMOGLOBIN 16.2 g/dL (12-16); IMMATURE GRANULOCYTES 0.6 % (0-5); LYMPHOCYTES 19.5 % (15-50); MCH 30.9 pg (26.0-34.0); MCHC 34.9 g/dL (31.0-37.0); MCV 88.5 fL (80.0-100.0); MEAN PLATELET VOLUME 11.2 fL (7.4-10.4); MONOCYTES 8.7 % (2-11); NEUTROPHILS 70.6 % (40-80); PLATELET COUNT 375 10x3/uL (130-400); RBC 5.24 10x6/uL (4.00-5.40); RDW 12.4 % (11.5-14.5); WBC 10.8 10x3/uL (4.8-10.8)
[2019-08-31 00:15] VITALS: BP 102/64
[2019-08-31 00:17] LABS: CALC OSMOLALITY 288 mosm/kg (275-300); CALCIUM 8.4 mg/dL (8.5-10.1); CHLORIDE - SERUM 105 mmol/L (98-107); CREATININE - SERUM 1.1 mg/dL (0.6-1.3); GLUCOSE 146 mg/dL (74-106); INR 1.73 (0.85-1.17); POTASSIUM - SERUM 3.8 mmol/L (3.5-5.1); SODIUM 142 mmol/L (136-145); UREA NITROGEN 21 mg/dL (7-18); eGFR NON AFRICAN AMERICAN 54 mL/min (90-120)
[2019-08-31 00:33] LABS: ALBUMIN 3.1 g/dL (3.4-5.0); ALKALINE PHOSPHATASE 78 U/L (30-120); ALT (SGPT) 32 U/L (10-68); BILIRUBIN - TOTAL 0.48 mg/dL (0.2-1.3); CKMB 0.6 U/L (0.0-3.6); CREATINE KINASE 57 UL (21-215); PROTEIN - SERUM 7.3 g/dL (6.4-8.2); TROPONIN-I 0.028 ng/mL (0.000-0.060)
--- NOTE | 2019-08-31 01:59 | NUR ---
RECEIVED FROM ER, PT IS A&O X4, UP AB AURELIO, DENIES ANY NEEDS AT THIS TIME, BED IS LOW, SRX2, CALL LIGHT IN REACH, WILL CONTINUE PLAN OF CARE. AT BEDSIDE
--- NOTE | 2019-08-31 02:00 | NUR ---
ADMIT TO ROOM 2121 FROM ER. [place] DRIP AT 10ML/HR INFUSING. NS @ 50ML/HR INFUSING. ADMISSION ASSESSMENT AND HISTORY COMPLETED. HOME MEDS UPDATED/REVIEWED. PT ALERT/ORIENTED. , EDDIE, AT BEDSIDE. TELEMETRY STARTED 84/CAF. PLAN OF CARE INITIATED. CALL LIGHT IN REACH.
[2019-08-31 02:23] VITALS: BP 99/65; BMI 29.4
[2019-08-31 04:00] VITALS: BP 101/61
--- NOTE | 2019-08-31 04:35 | NUR ---
DECREASED CARDIZEM TO 5ML/HR AT THIS TIME. PT STILL CAF, RATE DROPPING INTO TO THE 50'S AND STAYING 50-60. CONTINUE TO MONITOR.
--- NOTE | 2019-08-31 07:15 | NUR ---
RECEIVED PT IN BED AAOX4 RESP UNLABORED SKIN W/D COLOR WNL TELEMETRY SINUS JANETH RATE 56 PT DENIES ANY NEEDS OR DISCOMFORT AT THIS TIME
[2019-08-31 08:00] VITALS: BP 100/54
[2019-08-31 09:32] VITALS: Ht 170.2 cm; Wt 85.2 kg
[2019-08-31] MEDS ORDERED: PROPAFENONE HC150 MG PO (09:54)
--- NOTE | 2019-08-31 10:00 | NUR ---
CARDIZEM GTT OFF AT THIS TIME
--- NOTE | 2019-08-31 11:50 | NUR ---
REVIEWED DISCHARGE INSTRUCTIONS STATES UNDERSTANDING COPY GIVEN DCD SALINE LOCK TO RT HAND WITH IV CATHETER INTACT SITE FREE OF REDNESS OR EDEMA PT DISCHARGED HOME LEFT UNIT VIAW/C IN STABLE CONDITION WITH ALL PERSONAL BELONGINGS
--- NOTE | 2019-09-03 11:25 | DS ---
PATIENT:KANCHAN BENSON :60 MEDICAL RECORD: [id number] DISCHARGE SUMMARY ADMISSION DATE: 08/31/19 DISCHARGE DATE: 08/31/19 DISCHARGE DIAGNOSIS: Paroxysmal atrial fibrillation. HOSPITAL COURSE: Ms. Benson had a history of atrial fibrillation for which she was on sotalol for 7 years with no atrial fibrillation. She stopped the sotalol. She had a recurrence of the atrial fibrillation in conjunction with pulmonary emboli. She presented with palpitations and was given 1 dose of sotalol and one dose of IV Cardizem. She converted to sinus rhythm. We restarted her propafenone 150 mg b.i.d. if she tolerated it and it worked to keep her in rhythm in the past. We will follow up with [facility] as previously scheduled. TRANSINT:[id number] Voice Confirmation ID: [id number] DOCUMENT ID: [id number] AKSHAT CRAWFORD MD at 1125 CC: [id number] DICTATION DATE: 08/31/19 1128 GEAR MILLING MACHINE SET UP OPERATOR: 08/31/192044 DIS IN 08/31/19 [facility] [address] [place] [id number]
--- NOTE | 2019-09-03 11:25 | HP ---
PATIENT: KANCHAN BENSON MEDICAL RECORD: [id number] ACCOUNT: [id number] LOCATION:[address] : 60 ADMISSION DATE: 08/31/19 PCP: MATIAS HODGES MD HISTORY AND PHYSICAL EXAMINATION DIAGNOSES: 1. Paroxysmal atrial fibrillation. 2. History of pulmonary emboli. HISTORY OF PRESENT ILLNESS: Mrs. Benson has a history of atrial fibrillation. She was previously on sotalol. This caused bradycardia. The sotalol was stopped. For 7 years, she was on propafenone and never had a problem. With the sotalol in the past many years ago, she as well had bradycardia and low energy and this was stopped. She did well with the propafenone. She did stop the propafenone secondary to no further atrial fibrillation. She then had a pulmonary emboli and has had recurrent atrial fibrillation, since then she is in sinus rhythm. As of now, after 1 dose of sotalol and IV Cardizem, she is having no symptomatology. Troponin is normal. PHYSICAL EXAMINATION: CONSTITUTIONAL/GENERAL APPEARANCE: Well nourished, well developed, appears stated age. EYES: Lids and conjunctivae noninjected. No discharge. No pallor. ENT: Lips within normal limit. No cyanosis. No pallor. NECK: Carotid arteries, bilateral normal upstroke. No bruits. No thrills. No jugular venous pressure or distention. CERVICAL LYMPH NODES: Nontender. Nonenlarged. THYROID: Not enlarged. No nodules. CARDIOVASCULAR: Precordial exam, nondisplaced. No heaves or pericardial thrills. Rate and rhythm, regular. Heart sounds, normal S1, normal S2. No S3, no gallop, no rub. Systolic murmur, not heard. Diastolic murmur, not heard. RESPIRATORY: Respiratory effort, unlabored. Normal curvature. No thoracic deformity. No chest wall tenderness. Percussion, resonant. Auscultation, clear. No wheezes, no rales, no rhonchi. ABDOMEN: Soft, nondistended, nontender. No abdominal pain, no vomiting and normal appetite. MUSCULOSKELETAL: No joint tenderness, normal gait, normal tone. SKIN: Warm and dry. OVERALL IMPRESSION: Paroxysmal atrial fibrillation. At this time, we will just restart her propafenone as she tolerated this well and kept her in sinus rhythm. We will use 150 mg b.i.d. She will follow up with [facility] as previously scheduled. TRANSINT:[id number] Voice Confirmation ID: [id number] DOCUMENT ID: [id number] HISTORY AND PHYSICAL [id number] KANCHAN BENSON JEFFREY MD at 1125 CC: [id number] DICTATION DATE: 08/31/19 1127 INSURANCE LOSS ASSESSOR: 08/31/19 1144 DIS IN 08/31/19 [place] [id number] [place] [address]
== END 2019-08-31 11:50 | disposition home or self-care (01) ==
LOC: D.ER 23:15 → OBSVTIME 08-31 01:17 → D.M2 08-31 01:17
PROVIDERS: Family Medicine; ADMIT Internal Medicine Interventional Cardiology; ATTEND Internal Medicine Interventional Cardiology
DX: I48.0 Paroxysmal atrial fibrillation (principal); Z86.711 Personal history of pulmonary embolism

== ENCOUNTER 2020-10-08 05:38 | Day surgery (SDC) | payer OTHER ==
[~2020-10-08] VITALS: Ht 170.2 cm; Wt 88.9 kg
[~2020-10-08 05:38] MED LIST changes: +BISOPROLOL-HCT1 EAC3 PO; +PEPCID AC20 MG PO
[2020-10-08 06:05] LABS: HEMATOCRIT 42.5 % (36.0-48.0); HEMOGLOBIN 13.9 g/dL (12-16); MCHC 32.7 g/dL (31.0-37.0); MCV 91.6 fL (80.0-100.0); MEAN PLATELET VOLUME 10.3 fL (7.4-10.4); RBC 4.64 10x6/uL (4.00-5.40); RDW 12.8 % (11.5-14.5); WBC 5.8 10x3/uL (4.8-10.8)
[2020-10-08 06:12] LABS: PLATELET COUNT 280 10x3/uL (130-400)
[2020-10-08 06:17] LABS: ANION GAP 9.7 mmol/L (8-16); CALCIUM 8.7 mg/dL (8.5-10.1); POTASSIUM - SERUM 3.7 mmol/L (3.5-5.1)
[2020-10-08 06:32] VITALS: BP 114/66; Ht 170.2 cm; Wt 88.9 kg
[2020-10-08] MEDS ORDERED: HYDROCODON-ACE1 EA10 PO (08:45)
--- NOTE | 2020-10-08 09:00 | NUR ---
OPA IN AIRWAY ON ADMIT TO RR
--- NOTE | 2020-10-08 09:54 | NUR ---
SCOPE PATCH BEHIND LT EAR ON ADMIT
[2020-10-08 11:23] LABS: EOSINOPHILS 2 % (0-7); LYMPHOCYTES 50 % (15-50); MONOCYTES 8 % (2-11); NEUTROPHILS 39 % (40-80); PLATELET ESTIMATE NORMAL; ROULEAUX OCC
--- NOTE | 2020-10-08 12:31 | NUR ---
1124 IV DC'D. CATHETER TIP INTACT. PRESSURE HELD UNTIL BLEEDING CEASED. BANDAID APPLIED. [address] RASHEED WHEN PT CAN RESTART XARELTO. PT HAS INSTRUCTIONS THAT SHE CAN START IT ON MONDAY
--- NOTE | 2020-10-08 12:39 | NUR ---
1139 DISCHARGE INSTRUCTIONS REVIEWED WITH PT WHO VOICES UNDERSTANDING OF THESE INSTRUCTIONS
--- NOTE | 2020-10-08 14:51 | OP ---
PATIENT NAME: KANCHAN MENJIVAR MEDICAL RECORD: [id number] :60 LOCATION:D.OPS ADMISSION DATE: SURGEON: KORINA RASHEED MD DATE OF OPERATION: 10/08/2020 PREOPERATIVE DIAGNOSES: 1. Biliary dyskinesia. 2. Atrial fibrillation. 3. Gastroesophageal reflux disease. POSTOPERATIVE DIAGNOSES: 1. Biliary dyskinesia. 2. Atrial fibrillation. 3. Gastroesophageal reflux disease. PROCEDURE: Laparoscopic cholecystectomy. SURGEON: Korina Rasheed MD DESCRIPTION OF PROCEDURE: The patient's abdomen was prepped and draped in sterile fashion. A cutdown was made on the superior aspect of the umbilicus, 0 Vicryls were placed in the fascia bilaterally and the fascia was incised with a 15-blade. I then bluntly entered the peritoneal cavity and placed a 12-mm Davidson port. A 5-mm trocar was placed in the epigastrium and two more 5-mm trocars were then placed in the right subcostal region. The gallbladder was grasped and elevated. There were some chronic inflammatory adhesions present and these were teased down with blunt dissection. The cystic artery and cystic duct were dissected free and these were clipped proximally and distally and ligated in standard fashion. The gallbladder was taken off the liver bed using electrocautery and placed into the right upper quadrant. Any bleeding from the liver bed was treated with electrocautery. The ports and insufflation were then removed and the gallbladder was taken out through the umbilicus. The umbilical fascia was closed with interrupted 0 Vicryls times 3. The wounds were then irrigated out with normal saline and infused with 10 mL of 0.25% Marcaine with epinephrine. The skin incisions were closed with subcutaneous 5-0 Monocryl and dressed appropriately. COMPLICATIONS: None. CONDITION: Stable. ANESTHESIA: General endotracheal and local. BLOOD LOSS: Minimal. TRANSINT:[id number] Voice Confirmation ID: [id number] DOCUMENT ID: [id number] OPERATIVE REPORT [id number] KANCHAN MENJIVAR CHRISTIAN MD at 1451 CC: [id number] DICTATION DATE: 10/08/20 0855 LEVER TENDER: 10/08/20 1138 [facility] 10/08/20 [place] [address]
== END 2020-10-08 11:39 | disposition home or self-care (01) ==
LOC: D.OPS 05:38
PROVIDERS: ATTEND Surgery
DX: K82.8 Other specified diseases of gallbladder (principal); I48.91 Unspecified atrial fibrillation; K21.9 Gastro-esophageal reflux disease without esophagitis; R10.11 Right upper quadrant pain; R11.0 Nausea